=== PATIENT | female | born 1960 | race Caucasian/White ===

== ENCOUNTER 2017-09-07 09:24 | Emergency (ER) | payer MEDICARE ==
[2017-09-07] MEDS ORDERED: Ibuprofen 800 MG TAB ONE (11:50)
== END 2017-09-07 12:57 | disposition home or self-care (01) ==
LOC: ERS 09:24
DX: M54.6 Pain in thoracic spine (principal); Z79.899 Other long term (current) drug therapy
CPT/HCPCS: 93005

== ENCOUNTER 2017-09-10 12:04 | Observation (INO) | payer MEDICARE ==
[2017-09-10 12:38] LABS: #Eosinphils 0.2 thou/uL (0.0-0.7); #Lymphocytes 2.4 thou/uL (1.20-3.40); #Monocytes 0.6 thou/uL (0.11-0.59); #Neutrophils 4.5 thou/uL (1.40-6.50); %Basophils 0.5 % (0.0-1.0); %Eosinophils 2.4 % (0.0-10.0); %Lymphocytes 31.4 % (21.0-51.0); %Monocytes 7.8 % (0.0-10.0); %Neutrophils 57.9 % (42.0-75.0); Hemoglobin 14.6 g/dL (12.0-16.0); Mean Corpuscular Volume 91.3 fl (81.0-99.0); Mean Platelet Volume 8.1 fL (7.4-10.4); Platelet Count 204 thou/uL (130-400); RBC Distribution Width 12.1 % (11.5-14.5); White Blood Cell (WBC) Count 7.7 thou/uL (4.8-10.8)
[2017-09-10 12:59] LABS: ALT (SGPT) 66 U/L (8-55); AST (SGOT) 59 U/L (5-34); Albumin 4.1 g/dL (3.5-5.0); Alkaline Phosphatase 79 U/L (40-150); Anion Gap 12 mmol/L (10-20); BUN (Urea Nitrogen) 17 mg/dL (9.8-20.1); Bilirubin, Total 0.8 mg/dL (0.2-1.2); CK (CPK) 95 U/L (29-168); Calc. Creatinine Clearance 0 mL/min (70-130); Calcium 9.5 mg/dL (7.8-10.44); Carbon Dioxide 25 mmol/L (22-29); Chloride 105 mmol/L (98-107); Estimated GFR-MDRD 82; Globulin 3.1 g/dL (2.4-3.5); Glucose 92 mg/dL (70-105); Potassium 3.9 mmol/L (3.5-5.1); Protein, Total 7.2 g/dL (6.0-8.3); Sodium 138 mmol/L (136-145)
[2017-09-10] MEDS ORDERED: ISOVUE-370 76%-LOCM 1 ML ONE (13:01)
[2017-09-10 13:02] LABS: CKMB 3.6 ng/mL (0-6.6); Troponin I Less than 0.010 ng/mL (< 0.028)
--- NOTE | 2017-09-10 13:19 | RAD ---
AP CHEST: Indication: Chest pain. Comparison: None. FINDINGS: No airspace consolidation, pleural effusion is evident. Heart size is within normal limits. There are mild vascular calcifications involving the aortic arch. There is an ACDF plate involving the lower c ervical spine. No acute osseous abnormality is evident. IMPRESSION: No acute cardiopulmonary abnormality. POS: [facility]
[2017-09-10] MEDS ORDERED: Morphine 4 MG/ML VIAL ONE (15:11)
[2017-09-10 15:38] LABS: Troponin I Less than 0.010 ng/mL (< 0.028)
--- NOTE | 2017-09-10 16:14 | ULT ---
RIGHT UPPER QUADRANT ULTRASOUND: Date: 09/10/17 HISTORY: Right upper quadrant abdominal pain. FINDINGS: The gallbladder is mildly distended with increased echogenic material within the dependent portion of the gallbladder lumen suggesting small amount of sludge. No gallbladder calculus is seen. There is n o gallbladder wall thickening or pericholecystic fluid identified. Liver is at the upper limits of normal in size, but otherwise demonstrates a normal sonographic appea josiane. The limited visualized portions of the pancreas, visualized portions of the IVC, and right kid arron demonstrate a normal sonographic appearance. The right kidney measures 9.6 cm in length. There is a punctate echogenic focus in the inferior pole left kidney measuring 0.4 cm. No definitive posterio r shadowing is seen to suggest this represents a nonobstructing calculus, and this may represent a pr ominent vessel. IMPRESSION: Sludge within the gallbladder lumen. No gallbladder calculus is present. The common duct is normal in caliber measuring 0.5 cm in diameter. POS: [facility]
--- NOTE | 2017-09-10 18:00 | PDOC.FPRHP ---
Addendum entered and electronically signed by Carmencita Nassar DO 09/10/17 21 :43: Code status: Full DVT ppx: SCDs GI ppx: Protonix Original Note: - History of Present Illness Chief Complaint: Epigastric pain History of Present Illness: 57 year old female with PMH of HTN that presents with epigastric and substernal chest pain that woke her up from sleep. Patient states the pain is worse when laying flat. She denies any associated shortness of breath, diaphoresis, or radiation of pain. Patient has never experienced the substernal pain previously. She describes it as a sharp pain currently rated as a 7/10. She does have a history of PUD with bleeding ulcer three years ago which required cauterization and blood transfusion. She has not been on PPI's or antacids. She has not had any issues with ulcers since that time. Patient states that she has been taking her BP medications regularly. Associated symptoms include nausea without vomiting. Patient just moved from [place] and had not yet established with PCP. ED Course: Famotidine 20 mg, GI cocktail white 40 mL, Morphine 4 mg - Allergies/Adverse Reactions Allergies Allergy/AdvReac Type Severity Reaction Status Date / Time ketorolac [From Toradol] Allergy Unknown Rash Verified 09/10/17 21:17 - Home Medications Medication Instructions Recorded Confirmed Type Hydrochlorothiazide 12.5 mg PO DAILY 09/10/17 09/10/17 History Lisinopril 20 mg PO DAILY 09/10/17 09/10/17 History - History PMHx: HTN, Chronic BP, Cervical Cancer s/p hysterectomy, Hx of PUD PSHx: Spinal surgery x3, Appendectomy, Total hysterectomy FHx: Mother with DM and HTN. Dad with stent placed in mid 50's and Alzheimer's disease Social: Denies any tobacco, alcohol or drug use. - Review of Systems General: denies: fever/chills, weight/appetite/sleep changes, night sweats, fatigue Eyes: denies: eye pain, vision changes ENT: denies: nasal congestion, rhinorrhea Respiratory: denies: cough, congestion, shortness of breath, exercise intolerance Cardiovascular: reports: chest pain. denies: palpitation, edema, paroxysmal nocturnal dyspnea, orthopnea Gastrointestinal: reports: nausea, constipation, abdominal pain (Epigatric). denies: vomiting, diarrhea, GI bleeding Genitourinary: denies: incontinence, dysuria, polyuria Skin: denies: rashes, lesions, jaundice, itching Musculoskeletal: reports: pain (back pain), stiffness. denies: tenderness Neurological: denies: numbness, syncope, seizure, weakness Psychological: denies: anxiety, depression - Vital signs BP: 180/120 HR: 100 RR: 20 Tmax: 98.5F Pox: 98% on RA Wt: 82.1 kg - Physical Exam Constitutional: NAD, awake, alert and oriented, well developed HEENT: normocephalic and atraumatic, PERRLA, EOMI, conjunctiva clear, no scleral icterus, grossly normal vision, TM's clear and intact, grossly normal hearing, normal nasal mucosa, MMM, oropharynx clear -HEENT: Upper dentures Neck: supple, trachea midline -Chest: Tender to palpation in mid-chest; reproducible pain Heart: RRR, normal S1/S2, no murmurs/rubs/gallops, pulses present, no edema Lungs: CTAB, no respiratory distress, good air movement, no rales/rhonchi, no wheezing Abdomen: soft, bowel sounds present -Abdomen: Tender to palpation in epigastric region and RUQ. Negative Cain's sign. No rebound or guarding. Musculoskeletal: normal structure, ROM grossly normal Neurological: no focal deficit, CN II-XII intact Skin: no rash/lesions, good turgor, capillary refill <2 seconds Heme/Lymphatic: no unusual bruising or bleeding, no purpura, no petechia Psychiatric: normal mood and affect, good judgment and insight, intact recent and remote memory FMR H&P: Results - Labs Result Diagrams: 09/10/17 12:20 09/10/17 12:20 Lab results: WBC 7.7 thou/uL (4.8-10.8) 09/10/17 12:20 Hgb 14.6 g/dL (12.0-16.0) 09/10/17 12:20 Hct 42.9 % (36.0-47.0) 09/10/17 12:20 MCV 91.3 fl (81.0-99.0) 09/10/17 12:20 Plt Count 204 thou/uL (130-400) 09/10/17 12:20 Neutrophils % 57.9 % (42.0-75.0) 09/10/17 12:20 Sodium 138 mmol/L (136-145) 09/10/17 12:20 Potassium 3.9 mmol/L (3.5-5.1) 09/10/17 12:20 Chloride 105 mmol/L (98-107) 09/10/17 12:20 Carbon Dioxide 25 mmol/L (22-29) 09/10/17 12:20 BUN 17 mg/dL (9.8-20.1) 09/10/17 12:20 Creatinine 0.73 mg/dL (0.6-1.1) 09/10/17 12:20 Glucose 92 mg/dL (70-105) 09/10/17 12:20 Calcium 9.5 mg/dL (7.8-10.44) 09/10/17 12:20 Total Bilirubin 0.8 mg/dL (0.2-1.2) 09/10/17 12:20 AST 59 U/L (5-34) H 09/10/17 12:20 ALT 66 U/L (8-55) H 09/10/17 12:20 Alkaline Phosphatase 79 U/L (40-150) 09/10/17 12:20 Creatine Kinase 95 U/L (29-168) 09/10/17 12:20 CK-MB (CK-2) 3.6 ng/mL (0-6.6) 09/10/17 12:20 Serum Total Protein 7.2 g/dL (6.0-8.3) 09/10/17 12:20 Albumin 4.1 g/dL (3.5-5.0) 09/10/17 12:20 - Radiology Interpretation Chest x-ray Status: image reviewed by me, report reviewed by me Additional comment: No acute cardiopulmonary abnormality US - abdomen Status: image reviewed by me, report reviewed by me Additional comment: RUQ U/S: sludge within gallbladder lumen, normal common bile duct, no stones seen CT scan - abdomen Status: image reviewed by me, report reviewed by me Additional comment: Mild distention of gallbladder without inflammation, mildly enlarge spleen, reactive lymph nodes FMR H&P: A/P - Problem List (1) Atypical chest pain Current Visit: Yes Status: Acute Code(s): R07.89 - OTHER CHEST PAIN (2) Elevated LFTs Current Visit: Yes Status: Acute Code(s): R79.89 - OTHER SPECIFIED ABNORMAL FINDINGS OF BLOOD CHEMISTRY (3) PUD (peptic ulcer disease) Current Visit: Yes Status: Chronic Code(s): K27.9 - PEPTIC ULC, SITE UNSP, UNSP AC OR CHR, W/O HEMOR OR PERF (4) HTN (hypertension) Current Visit: Yes Status: Chronic Code(s): I10 - ESSENTIAL (PRIMARY) HYPERTENSION Qualifiers: Hypertension type: essential hypertension Qualified Code(s): I10 - Essential (primary) hypertension - Plan Atypical chest pain - New onset substernal chest pain reproducible on exam, as well as, epigastric pain in pt with history of PUD - Likely gastrointestinal in nature possibly from PUD vs. GERD - CE's neg x2, continue to trend x3 - EKG NSR without evidence of ischemia - GI cocktail given; will reevaluate pain after GI cocktail - Lipase 14; unlikely to be pancreatitis - RUQ ultrasound did show some sludge and CT abdomen showed mildly distended gallbladder without pericholecystic inflammation - Consider repeating CMP in AM - Patient would benefit from establishing with PCP to have further GI workup done as outpatient - Heart score of 2. No indication for stress test at this time. - Start on protonix and sucralfate TR Elevated LFT's - RUQ showed sludge in gallbladder - CT scan showed mildly distended gallbladder without inflammation - May need further workup as outpatient Hx PUD - No evidence of bleed on CT abdomen/pelvis - Patient has not been on PPI or antacids - Required cauterization of bleeding ulcer and blood transfusion 3 years ago; no other problems since that time HTN - Continue lisinopril and HCTZ - Pt may need adjustments in medication as outpatient - Continue to monitor BP - PRN BP medications as needed for SBP > 160 mmHg Dispo: Observe on telemetry. Anticipate LOS <48 hours. FMR H&P: Upper Level - Pertinent history 57 yo F with PMHx HTN and bleeding ulcers presented to ED for epigastric and substernal pain. Pt woke from sleep at 3am with epigastric pain radiating to back, nausea, and substernal chest pressure. Denies vomiting. Normal BM yesterday. Denies SOB, fever, cough, diaphoresis. Gets stomach cramps when lays down. Chest tender to touch. Did not try anything for relief. Pt had bleeding ulcers in unspecified location 3 years ago that caused hypotension and required blood products. Has not had recent issues. Pt moved from [place] recently and has not established with a PCP in the area. Observation overnight with 1-2 day stay expected. - Pertinent findings Gen: NAD, alert, well nourished HEENT: MMM CV: RRR, no m/r/g, chest wall mildly TTP with reproducible pain Lungs: CTAB, no increased WOB Abd: moderately TTP in epigastric region, ND, BS+, mild referred discomfort palpating RMQ, LMQ; neg Argos Ext: no edema - Plan Date/Time: 09/10/17 1800 1. Epigastric pain likely PUD. RUQ U/S showed gallbladder sludge. CT abd/pelvis showed no acute findings. Mildly distended gallbladder although did not appear inflamed or distended. Lipase 14. No white count. Pain appears most likely peptic ulcer dz in light of history and past issues. May have GERD component. GI cocktail ordered in ED and given during our exam. Will await if this was effective for symptoms. H2 andrea given. Treat pain overnight during observation period. 2. Atypical chest pain. Trend trops for chest pain component although less likely cardiac. Neg x2 currently. Heart score 2. Pain reproducible on exam. Likely GERD complaint. No plan for stress test. If recurs or worsens, consider repeat EKG. No ischemic signs on EKG per ED report although unable to find for personal evaluation. 3. HTN. Continue home meds. 4. Transaminitis. Very mild. Repeat CMP in AM. Normal bilirubin. Mild distended gallbladder with sludge may be culprit. I, Eduard Ahumada, have evaluated this patient and agree with findings/plan as outlined by agribusiness internship resident. Pertinent changes/additions are listed here. Attending Addendum - Attending Addendum Date/Time: 09/11/17 9179 I personally evaluated the patient and discussed the management with Dr. Nassar on 09/10/2017 I agree with the History, Examination, Assessment and Plan documented above with any addition or exceptions noted below- Briefly this is a 57 year old female with PMH of HTN, PUD who presented c/o epigastric and substernal chest pain. States that pain associated with nausea, no vomiting. Worse with eating or lying flat. Denies any diaphoresis. Pain did radiate to under shoulder blade. Never had similar pain. PMH/PSH/Meds/All/Sh/ROS reviewed and agree with resident's documentation. T 98.1 P85 BP 137/92 RR18 Pt seen and exam repeated by me. Agree with resident's findings. Labs Hgb=14.6 Hct= 42.9, lipase = 14 Troponin I (-) x3; ASt=59 ALT= 66 CXR- negative Abd USG- sludge in gallbladder. A/P: 1) Atypical chest pain- suspect GI source; Heart score=2. Continue PPI. Consider HIDA scan if pain persists. 2) Elevated transaminases- consider hepatitis panel. 3) H/o PUD- continue sucralfate and PPI
[2017-09-10] MEDS ORDERED: Famotidine 20 MG TAB ONE (18:14)
[2017-09-10] MEDS ORDERED: Lidocaine Viscous Sol 2% 15 ml UD Cup ONE (18:14)
[2017-09-10] MEDS ORDERED: Mag-Al 1200 mg/1200 mg/30 ML UDCUP ONE (18:14)
--- NOTE | 2017-09-10 18:29 | CT ---
CT ABDOMEN AND PELVIS WITH CONTRAST: HISTORY: Epigastric pain. COMPARISON: Ultrasound from the same day. FINDINGS: The lung bases are clear. No pericardial effusion. The gallbladder is moderately distended. The spleen is enlarged, measuring over 14 cm in size. The celiac trunk and superior mesenteric arteries are both patent. No free fluid or gas in the abdomen or pelvis. No dilated loops of large or small bowel. There is retained lobulation of the left kidney. No hydronephrosis. The pancreas is unremarkable. No mesenteric edema. Some fatty atrophy of the rectus abdominis muscl es bilaterally. The liver is unremarkable. The portal vein is patent. The adrenal glands are unremarkable. No renal calculi are present. Posterior spinal fusion hardware, L3-S1. IMPRESSION: 1. No acute inflammatory process in the abdomen or pelvis. 2. Small left gastric, celiac, and periaortic retroperitoneal lymph nodes may be reactive. 3. No dilated loops of large or small bowel. 4. Mild splenomegaly. 5. Mild distention of the gallbladder without pericholecystic inflammation. POS: [facility]
[2017-09-10 19:18] LABS: Troponin I Less than 0.010 ng/mL (< 0.028)
[2017-09-10] MEDS ORDERED: Ondansetron ODT 4 MG TAB SL PRN (20:37)
[2017-09-10] MEDS ORDERED: Ondansetron HCl/PF 4 MG/2 ML Vial IVP PRN (20:37)
[2017-09-10] MEDS ORDERED: Acetaminophen 325 MG TAB PO PRN (20:37)
[2017-09-10 21:12] VITALS: BMI 29.8
[2017-09-10] MEDS ORDERED: Calcium Carbonate 500 MG ChewTAB PO PRN (21:12)
[2017-09-10] MEDS ORDERED: Ondansetron ODT 4 MG TAB PO PRN (21:12)
[2017-09-10] MEDS ORDERED: Famotidine 20 MG TAB PO SCH (21:30)
[2017-09-10 21:45] LABS: Troponin I Less than 0.010 ng/mL (< 0.028)
[2017-09-10] MEDS: Acetaminophen 325 MG TAB PO PRN (21:46)
[2017-09-10] MEDS ORDERED: Metoclopramide HCl 10 MG/2 ML VIAL IVP SCH (23:45)
[2017-09-11 05:37] LABS: ALT (SGPT) 63 U/L (8-55); AST (SGOT) 54 U/L (5-34); Albumin 3.8 g/dL (3.5-5.0); Alkaline Phosphatase 70 U/L (40-150); Anion Gap 12 mmol/L (10-20); BUN (Urea Nitrogen) 21 mg/dL (9.8-20.1); Bilirubin, Total 0.9 mg/dL (0.2-1.2); Calc. Creatinine Clearance 94 mL/min (70-130); Calcium 9.1 mg/dL (7.8-10.44); Carbon Dioxide 26 mmol/L (22-29); Chloride 103 mmol/L (98-107); Estimated GFR-MDRD 70; Globulin 2.9 g/dL (2.4-3.5); Glucose 92 mg/dL (70-105); Potassium 3.8 mmol/L (3.5-5.1); Protein, Total 6.7 g/dL (6.0-8.3); Sodium 137 mmol/L (136-145)
[2017-09-11] MEDS: Acetaminophen 325 MG TAB PO PRN ×3 (07:51→20:24)
--- NOTE | 2017-09-11 08:55 | PDOC.FM ---
- Subjective Subjective: Patient still complains of epigastric pain this AM. States none on the medications she received last night helped with the pain, but she was so tired she finally was able to sleep through it. Worse when laying flat. Pain is in mid epigastric region and worse in RUQ than LUQ. Reports NSAID use of about 400 mg daily for 4 months. Worse with food. Apparently has had the pain for about 2 days but has been worse in the middle of the night for 2 nights prior to reporting to ER. Pain is sharp in nature. Afebrile. She does have a hx of alcohol use but denies any use in 1.5 years. She just returned to her own home after staying with [facility] [place] for a while bc there was concern for relapse. No hx of ND in mother, father, or grandparents. Denies hx of smoking. Denies hx of HLD. She does report hx of PUD with significant UGIB 3 years ago. Denies alcohol use leading up to the ulcer. - Objective MAR Reviewed: Yes Vital Signs & Weight: Vital Signs (12 hours) Temp Pulse Resp BP Pulse Ox 09/11/17 07:22 98.1 F 63 12 102/64 92 L 09/11/17 04:00 98.1 F 83 16 127/81 95 09/10/17 21:00 98.1 F 85 18 Weight Weight 81.374 kg I&O: 09/10/17 09/11/17 09/12/17 06:59 06:59 06:59 Intake Total 240 Balance 240 Result Diagrams: 09/10/17 12:20 09/11/17 04:39 Additional Labs: Laboratory Tests 09/10/17 09/10/17 09/10/17 12:20 12:20 15:05 Troponin I Less than 0.010 Less than 0.010 Lipase 14 09/10/17 09/10/17 18:47 21:11 Troponin I Less than 0.010 Less than 0.010 Lipase EKG Reviewed by me: Yes (NSR without ST changes or evidence of prior ischemia) <Nella Schulz - Last Filed: 09/11/17 10:26> - Objective Vital Signs & Weight: Vital Signs (12 hours) Temp Pulse Resp BP BP Pulse Ox 09/11/17 09:07 102/64 09/11/17 07:22 98.1 F 63 12 102/64 92 L 09/11/17 04:00 98.1 F 83 16 127/81 95 Weight Weight 81.374 kg I&O: 09/10/17 09/11/17 09/12/17 06:59 06:59 06:59 Intake Total 240 Balance 240 Result Diagrams: 09/10/17 12:20 09/11/17 04:39 <Renato Jernigan - Last Filed: 09/11/17 10:45> Phys Exam - Physical Examination Constitutional: NAD HEENT: moist MMs Respiratory: no wheezing, no rales, no rhonchi, clear to auscultation bilateral Cardiovascular: RRR, no significant murmur Gastrointestinal: soft mild tenderness to palpation in epigastric region, no guarding or rigidity Musculoskeletal: no edema Neurological: non-focal, normal sensation, moves all 4 limbs Psychiatric: A&O x 3 Skin: cap refill <2 seconds <Nella Schulz - Last Filed: 09/11/17 10:26> Dx/Plan (1) Epigastric abdominal pain of unknown etiology Code(s): R10.13 - EPIGASTRIC PAIN Status: Acute (2) Atypical chest pain Code(s): R07.89 - OTHER CHEST PAIN Status: Ruled-out (3) Elevated LFTs Code(s): R79.89 - OTHER SPECIFIED ABNORMAL FINDINGS OF BLOOD CHEMISTRY Status : Acute (4) HTN (hypertension) Code(s): I10 - ESSENTIAL (PRIMARY) HYPERTENSION Status: Chronic QualifierTitle: Hypertension type: essential hypertension Qualified Code( s): I10 - Essential (primary) hypertension (5) PUD (peptic ulcer disease) Code(s): K27.9 - PEPTIC ULC, SITE UNSP, UNSP AC OR CHR, W/O HEMOR OR PERF Status: Chronic - Plan Plan: 57 yr old female with hx of PUD and HTN presents for atypical CP vs epigastric pain epigastric pain -in light of hx of PUD, could be recurrent PUD. -RUQ sono revealing gallbladder sludge -may need EGD vs HIDA scan. -pending FOBT and stool h. pylori - consult GI atypical chest pain -neg trops x 4 -EKG without evidence for STEMI or ischemia - heart score 2, low risk. hx of PUD HTN -cont home meds. <Nella Schulz - Last Filed: 09/11/17 10:26> Attending Addendum - Attending Addendum Date/Time: 09/11/17 1041 I personally evaluated the patient and discussed the management with Dr. Schulz. I agree with the History, Examination, Assessment and Plan documented above with any addition or exceptions noted below. Negative cardiac workup. Her pain is mid epigastric and not improved with GI cocktail or Carafate. Due to her history of increased EtOH consumption, and chronic NSAID use, concern for gastritis versus recurrence of her PUD. WIll consult GI. <Renato Jernigan - Last Filed: 09/11/17 10:45>
[2017-09-11] MEDS ORDERED: Famotidine 20 MG TAB PO SCH (09:00)
[2017-09-11] MEDS: Hydrochlorothiazide 25 MG TAB PO SCH (09:07)
[2017-09-11] MEDS: Lisinopril 20 MG TAB PO SCH (09:07)
[2017-09-11] MEDS: Sucralfate 1 GM/10 ML UDCUP PO SCH ×2 (09:08→20:24)
[2017-09-11] MEDS ORDERED: Metoclopramide HCl 10 MG/2 ML VIAL IVP SCH (11:00)
[2017-09-12 07:18] LABS: ALT (SGPT) 67 U/L (8-55); AST (SGOT) 63 U/L (5-34); Albumin 3.7 g/dL (3.5-5.0); Alkaline Phosphatase 75 U/L (40-150); Anion Gap 13 mmol/L (10-20); BUN (Urea Nitrogen) 13 mg/dL (9.8-20.1); Bilirubin, Total 1.1 mg/dL (0.2-1.2); Calc. Creatinine Clearance 100 mL/min (70-130); Calcium 9.6 mg/dL (7.8-10.44); Carbon Dioxide 25 mmol/L (22-29); Chloride 104 mmol/L (98-107); Estimated GFR-MDRD 76; Globulin 3.2 g/dL (2.4-3.5); Glucose 89 mg/dL (70-105); Potassium 4.1 mmol/L (3.5-5.1); Protein, Total 6.9 g/dL (6.0-8.3); Sodium 138 mmol/L (136-145)
[2017-09-12] MEDS: Lisinopril 20 MG TAB PO SCH (08:07)
[2017-09-12] MEDS: Hydrochlorothiazide 25 MG TAB PO SCH (08:08)
[2017-09-12] MEDS: Sucralfate 1 GM/10 ML UDCUP PO SCH (08:08)
[2017-09-12] MEDS: Acetaminophen 325 MG TAB PO PRN ×2 (08:13→13:44)
[2017-09-12 08:14] VITALS: BP 122/69
[2017-09-12 08:22] VITALS: TEMP 98.3
--- NOTE | 2017-09-12 08:50 | PDOC.FM ---
- Subjective Subjective: Patient states pain is still present in mid epigastric region. She has been NPO however and is scheduled for EGD today. No other complaints. Denies N/V/D. Has not had BM in 2 days. Normally goes daily. No melena recently. - Objective MAR Reviewed: Yes Vital Signs & Weight: Vital Signs (12 hours) Temp Pulse Resp BP BP Pulse Ox 09/12/17 08:07 122/69 09/12/17 08:02 98.3 F 67 16 122/69 92 L 09/12/17 05:00 98.1 F 66 18 112/58 L 94 L Weight Weight 81.329 kg I&O: 09/11/17 09/12/17 09/13/17 06:59 06:59 06:59 Intake Total 240 1450 Balance 240 1450 Result Diagrams: 09/10/17 12:20 09/12/17 06:42 <Nella Schulz - Last Filed: 09/12/17 08:47> - Objective Vital Signs & Weight: Vital Signs (12 hours) Temp Pulse Resp BP BP Pulse Ox 09/12/17 08:07 122/69 09/12/17 08:02 98.3 F 67 16 122/69 92 L 09/12/17 05:00 98.1 F 66 18 112/58 L 94 L Weight Weight 81.329 kg I&O: 09/11/17 09/12/17 09/13/17 06:59 06:59 06:59 Intake Total 240 1450 Balance 240 1450 Result Diagrams: 09/10/17 12:20 09/12/17 06:42 <Adonay Conklin - Last Filed: 09/12/17 11:17> Phys Exam - Physical Examination Constitutional: NAD Respiratory: no wheezing, no rales, no rhonchi Cardiovascular: RRR, no significant murmur Gastrointestinal: soft tender in mid epigatric region-some guarding with palpation. no regidity Musculoskeletal: no edema Neurological: moves all 4 limbs <Nella Schulz - Last Filed: 09/12/17 08:47> Dx/Plan (1) Epigastric abdominal pain of unknown etiology Code(s): R10.13 - EPIGASTRIC PAIN Status: Acute (2) Atypical chest pain Code(s): R07.89 - OTHER CHEST PAIN Status: Ruled-out (3) Elevated LFTs Code(s): R79.89 - OTHER SPECIFIED ABNORMAL FINDINGS OF BLOOD CHEMISTRY Status : Acute (4) HTN (hypertension) Code(s): I10 - ESSENTIAL (PRIMARY) HYPERTENSION Status: Chronic QualifierTitle: Hypertension type: essential hypertension Qualified Code( s): I10 - Essential (primary) hypertension (5) PUD (peptic ulcer disease) Code(s): K27.9 - PEPTIC ULC, SITE UNSP, UNSP AC OR CHR, W/O HEMOR OR PERF Status: Chronic - Plan Plan: 57 yr old female with hx of PUD and HTN presents for atypical CP vs epigastric pain epigastric pain -in light of hx of PUD, could be recurrent PUD. -RUQ sono revealing gallbladder sludge- CT aslo reviewed with radiology, no gallbladder wall thickening, low concern for cholecystitis -GI to perform EGD today. -pending FOBT and stool h. pylori atypical chest pain -neg trops x 4 -EKG without evidence for STEMI or ischemia - heart score 2, low risk. - do not suspect ACS hx of PUD HTN -cont home meds. <Nella Schulz - Last Filed: 09/12/17 08:47> Attending Addendum - Attending Addendum Date/Time: 09/12/17 1110 I personally evaluated the patient and discussed the management with Dr. Schulz. I agree with the History, Examination, Assessment and Plan documented above with any addition or exceptions noted below. pain appears to be GI related. ND r/o'd. GB sludge, For EGD this am. consider OP f/u for biliary colic if persists. <Adonay Conklin - Last Filed: 09/12/17 11:17>
[2017-09-12] MEDS ORDERED: Sodium Chloride 0.9% 10 ML ONE (09:45)
[2017-09-12] MEDS ORDERED: Promethazine HCl 25 MG/ML VIAL IM PRN (10:50)
[2017-09-12] MEDS ORDERED: Promethazine HCl 25 MG/ML VIAL SLOW IVP PRN (10:50)
[2017-09-12] MEDS ORDERED: Ondansetron HCl/PF 4 MG/2 ML Vial IVP PRN (10:50)
[2017-09-12] MEDS ORDERED: Fentanyl 100 MCG/2 ML VIAL ONE ×2 (10:53→11:10)
[2017-09-12] MEDS ORDERED: PROPOFOL 200 MG/20 ML VIAL ONE (15:08)
[2017-09-12] MEDS ORDERED: Lidocaine 1% PF 5 ML VIAL ONE (15:08)
--- NOTE | 2017-09-12 23:46 | OP ---
DATE OF PROCEDURE: 09/12/2017 OPERATIVE PROCEDURE: Esophagogastroduodenoscopy with biopsy. PREOPERATIVE DIAGNOSES: Abdominal pain, past history of bleeding peptic ulcer 3 years ago. POSTOPERATIVE DIAGNOSES: 1. Mild esophagitis, grade 2. No ulcer seen. 2. Three gastric ulcers in gastric antrum. 3. Normal duodenum. PROCEDURE NOTE: The patient was placed on her left lateral position and was given sedation by Anesth esia Department. A Pentax video gastroscope under direct vision passed down the oropharynx past the GE junction into the stomach and subsequently to descending duodenum. The upper two-thirds of the es ophageal mucosa appeared normal. Over the distal esophagus, the patient was found to have hyperemia and edema. The GE junction, no pathology seen. The fundus, cardia, and gastric body, no pathology s een. In the gastric antrum, the patient was found to have a large ulceration, which appears chronic. The ulcer is probably about 1.5 cm x 1.75 cm. There were two more ulcers seen in the same area. A biopsy of the ulcer margin, ulcer base. The scope was advanced into the duodenal bulb and with desc ending duodenum. No pathology seen. The stomach was decompressed and scope removed. RECOMMENDATIONS: 1. Diet as tolerated. 2. Pantoprazole 40 once a day. 3. She will come back to clinic in 2 weeks.
--- NOTE | 2017-09-13 07:45 | CON ---
DATE OF CONSULTATION: 09/11/2017 REFERRING PHYSICIAN: Jade Wells MD REASON FOR CONSULTATION: Abdominal pain and nausea. HISTORY OF PRESENT ILLNESS: Ms. Alexus Herron is a very pleasant 57-year-old female hospit alized with abdominal pain and nausea. The patient tells me she has been having abdominal pain, mild to begin with for nearly 3-4 days. The pain got worse last night and she had severe nausea. She carrasco d no vomiting. She had no fever or chills. The pain is actually over the substernal area and also i n epigastric area. It is actually more widespread than actually localized. She points to the epigas tric area, right upper quadrant, and periumbilically as the site of pain. She was having also some s ubsternal pain to begin with, but the substernal pain has resolved. Now, she has persistent pain ove r the epigastric and periumbilical area. Her nausea has actually resolved. She is actually feeling better today except for the pain. The patient has history of bleeding peptic ulcer disease years ago . At that time, she was living in [place]. She was taking aspirin and she had an episode of dizzine ss, feeling faint and she went to the ER. On the way, she had an episode of vomiting and . She was hospitalized at [facility] and had an EGD done. She was told to have bleeding pe ptic ulcer. She was placed on PPI. She was advised not to take aspirin or any NSAID medication subs equently. The patient has not taken any aspirin or any NSAID medication for a long time. The patien t's bowel movements are fairly regular. There is no history of hematochezia or melena. She had told me she had a colonoscopy at the same time that she had bleeding peptic ulcer 3 years ago. She tells me that she had 28 polyps removed, but she did not go back for followup colonoscopy. The patient carrasco s no history of dysphagia. No history of odynophagia. She has no other relevant history. ALLERGIES: KETOROLAC. SOCIAL HISTORY: The patient does not smoke or drink alcohol. She has 1 grown up daughter. She live s in [place]. Her son at the age of 28 and he was a compensator worker, and he during some house on fire. MEDICAL ILLNESSES: 1. Hypertension. 2. Cervical cancer, status post hysterectomy. 3. History of bleeding peptic ulcer, 3 years ago. 4. Colon polyps, 2015. SURGERIES: 1. Spine surgery x3. 2. Appendectomy. 3. Total hysterectomy. FAMILY HISTORY: Father had diabetes, hypertension, coronary artery disease and Alzheimer's disease. MEDICATIONS: Hydrochlorothiazide and lisinopril. REVIEW OF SYSTEMS: A 10-point system reviewed. Constitutional: No history of fever. No weight los s. No night sweats. Exercise tolerance is very good. Head: No headache, no dizziness, no syncope, no seizure disorder. Eyes: Good vision. No blurring of vision, no diplopia. Ears: No ear pain o r any hearing impairment. Nose: No nosebleed. Neck: No pain or limitation of movement. Respirato ry: No history of chronic cough, hemoptysis, dyspnea. Cardiovascular: No chest pain, no palpitatio n. No dyspnea, orthopnea, PND. Gastrointestinal: As in history of present illness. Genitourinary: No dysuria, frequency of urination, hematuria. Musculoskeletal: Unremarkable. Endocrine: Unrema rkable. Neuropsychiatry: Unremarkable. PHYSICAL EXAMINATION: GENERAL: Very pleasant female, who appears very comfortable. She is awake; alert; oriente d to time, place, and person. VITAL SIGNS: She is afebrile. Pulse is 72, blood pressure 120/72. HEENT: Conjunctivae clear. NECK: Supple. No adenitis or thyromegaly. CARDIOVASCULAR: First and second heart sounds normal. LUNGS: Clear to auscultation. ABDOMEN: Soft. Abdomen is nondistended, but tender over the epigastric area, periumbilical area, an d also right upper quadrant. There is no rebound or guarding. No organomegaly or masses. Bowel rashawn nds are normal. EXTREMITIES: Reveal no edema. LABORATORY DATA: CBC, completely normal. Hemoglobin 14.6, hematocrit 42.9, WBC 7700, polymorphs 57, lymphocytes 81. Chem panel, normal. BMP: BUN is 21, glucose is 92, calcium 9.1, bilirubin 0.9. A ST elevated at 54, ALT is 53, alkaline phosphatase is 70, albumin is 3.8. Abdominal sonogram showed bilious sludge, otherwise unremarkable. CAT scan is basically negative. CLINICAL IMPRESSION: A 57-year-old female with, 1. Abdominal pain and nausea. The symptoms are worse over the last 24 hours. She has history of bl eeding peptic ulcer many years ago. CT scan, abdominal sonogram are basically negative. Her serum l ipase is normal. Plan EGD tomorrow. 2. Abnormal liver function tests, etiology unclear. I recommend obtaining hepatitis C antibody and viral markers.
--- NOTE | 2017-09-13 13:59 | DIS-2 ---
DATE OF ADMISSION: 09/10/2017 DATE OF DISCHARGE: 09/12/2017 ADMITTING ATTENDING: Jade Wells MD DISCHARGE ATTENDING: Adonay Conklin MD RESIDENT: Nella Schulz MD CONSULTATION: Dr. Pittman of GI. PRIMARY DIAGNOSES: 1. Peptic ulcer disease. 2. Atypical chest pain - acute coronary syndrome rule out. 3. History of peptic ulcer disease. 4. Hypertension. 5. Elevated in liver enzymes. PERTINENT IMAGING FINDINGS: 1. There was a chest x-ray performed on 09/10/2017 that showed no acute cardiopulmonary abnormality. 2. Abdominal ultrasound was performed on 09/10/2017 that showed sludge within the gallbladder lumen. No gallbladder calculus present. The common bile duct is normal in caliber, measuring 0.5 cm in di ameter. Liver was upper limits of normal in size, but otherwise demonstrates normal sonographic appe arance. 3. Abdominal CT on 09/10/2017, showed no acute inflammatory process in the abdomen or pelvis. There is small left gastric celiac and periaortic retroperitoneal lymph nodes that may be reactive. There are no dilated loops of large or small bowel and there is mild splenomegaly. Liver was reported as unremarkable. 4. There was an EGD performed on 09/12/2017 that showed mild esophagitis grade 2 with no ulcers seen . There are 3 gastric ulcers in the gastric antrum and a normal duodenum. There was a biopsy taken that did not show H. pylori, but did show reactive gastropathy. HISTORY OF PRESENT ILLNESS AND HOSPITAL COURSE: This is a 57-year-old female with a history of bleed ing peptic ulcer disease as well as hypertension, who presented to the ER with complaints of epigastr ic abdominal pain. The patient was taken for an EGD which was diagnostic of gastric ulcers. The pat ient was sent home on Protonix to take once daily. The patient did have some mildly elevated liver e nzymes and she was recommended to follow up and establish care with a PCP to have this further worked up. Patient did not demonstrate any hematemesis and her hemoglobin was within normal limits. Again , the patient was recommended to follow up with Dr. Pittman who performed EGD in 2 weeks. She was recommended to establish care at [facility] within a week of discharge. The patient was st able at discharge. The patient was explicitly told to avoid NSAIDs and avoid spicy foods and coffee, She is in the recuperating phase of her ulcers. DISPOSITION: Stable. DISCHARGE INSTRUCTIONS: 1. Location: Home. 2. Activity: As tolerated. 3. Diet: Regular but avoid spicy food. 4. Followup: Follow up with Dr. Pittman and [facility] within 1-2 weeks of discharge.
== END 2017-09-12 15:49 | disposition home or self-care (01) ==
LOC: ERS 12:04 → 2SW 18:06
PROVIDERS: ADMIT Family Medicine; ATTEND Family Medicine
PROC: 0DB68ZX Excision of Stomach, Via Natural or Artificial Opening Endoscopic, Diagnostic (ICD-10-PCS; principal; 2017-09-12)
DX: K25.9 Gastric ulcer, unspecified as acute or chronic, without hemorrhage or perforation (principal); K20.9 Esophagitis, unspecified; I10 Essential (primary) hypertension; R79.89 Other specified abnormal findings of blood chemistry; R07.89 Other chest pain; Z88.8 Allergy status to other drugs, medicaments and biological substances; Z85.41 Personal history of malignant neoplasm of cervix uteri; Z90.89 Acquired absence of other organs; Z90.710 Acquired absence of both cervix and uterus; Z79.899 Other long term (current) drug therapy
CPT/HCPCS: 43239; 71045; 74177; 76705; 80053 ×3; 82550; 82553; 83690; 84484 ×2; 85025; 88305; 88312; 93005; 94760; 96374; 96375; 96376; 99285; G0378; 36415; J2001; J2270; J2704; J2765; J3010

== ENCOUNTER 2017-10-19 18:25 | Emergency (ER) | payer MEDICARE, SELFPAY ==
[2017-10-19 19:06] LABS: #Eosinphils 0.2 thou/uL (0.0-0.7); #Lymphocytes 1.8 thou/uL (1.20-3.40); #Monocytes 0.4 thou/uL (0.11-0.59); #Neutrophils 3.1 thou/uL (1.40-6.50); %Basophils 0.3 % (0.0-1.0); %Eosinophils 3.5 % (0.0-10.0); %Lymphocytes 32.9 % (21.0-51.0); %Monocytes 7.5 % (0.0-10.0); %Neutrophils 55.8 % (42.0-75.0); Hemoglobin 13.1 g/dL (12.0-16.0); Mean Corpuscular Hemoglobin 31.3 pg (27.0-31.0); Mean Corpuscular Volume 89.4 fL (78.0-98.0); Mean Platelet Volume 7.8 fL (7.4-10.4); Platelet Count 150 thou/uL (130-400); White Blood Cell (WBC) Count 5.6 thou/uL (4.8-10.8)
[2017-10-19 19:33] LABS: CKMB 3.6 ng/mL (0-6.6); Troponin I Less than 0.010 ng/mL (< 0.028)
--- NOTE | 2017-10-19 19:40 | RAD ---
RADIOGRAPH CHEST 1 VIEW: 10/19/17 HISTORY: 57-year-old female with pressure type of posterior chest pain. FINDINGS: The thoracic aorta is tortuous and ectatic. There is no evidence of air space density, pneumothorax, or pulmonary edema. The lateral costophrenic angles are sharp. There is no cardiomegaly. ACDF hardw are in the C-spine. IMPRESSION: 1) No acute pulmonary findings. 2) Ectasia of thoracic aorta. zina [] POS: GABRIELLA
[2017-10-19] MEDS ORDERED: Acetaminophen 500 MG TAB ONE (19:45)
[2017-10-19] MEDS ORDERED: Lidocaine Viscous Sol 2% 15 ml UD Cup ONE (19:55)
[2017-10-19] MEDS ORDERED: Mag-Al 1200 mg/1200 mg/30 ML UDCUP ONE (19:55)
[2017-10-19 20:12] LABS: Chloride 108 mmol/L (98-107); Sodium 140 mmol/L (136-145)
[2017-10-19 20:13] LABS: ALT (SGPT) 74 U/L (8-55); AST (SGOT) 61 U/L (5-34); Albumin 3.8 g/dL (3.5-5.0); Alkaline Phosphatase 74 U/L (40-150); Anion Gap 11 mmol/L (10-20); BUN (Urea Nitrogen) 20 mg/dL (9.8-20.1); Bilirubin, Total 0.5 mg/dL (0.2-1.2); CK (CPK) 86 U/L (29-168); Calc. Creatinine Clearance 0 mL/min (70-130); Calcium 9.2 mg/dL (7.8-10.44); Carbon Dioxide 25 mmol/L (22-29); Estimated GFR-MDRD 71; Globulin 2.6 g/dL (2.4-3.5); Glucose 138 mg/dL (70-105); Protein, Total 6.4 g/dL (6.0-8.3)
[2017-10-19 20:27] LABS: Lipase 16 U/L (8-78)
--- NOTE | 2017-10-19 21:03 | ULT ---
ULTRASOUND ABDOMEN LIMITED: (RIGHT UPPER QUADRANT) 10/19/17 HISTORY: 57-year-old female with right upper quadrant abdominal pain, nausea, and elevated LFTs. FINDINGS: Gallbladder: Conatracted. Patient's last meal was six hours ago. Apparent minimal mural thickening of 3 mm could be due to the contracted state. No definite gallstone identified. Positive tenderness ove r the gallbladder. No pericholecystic fluid identified. Common duct: 5 mm. Liver: Unremarkable. Pancreas: Poorly visualized, partially obscured by shadowing from bowel gas. Right kidney: No hydronephrosis. IMPRESSION: Limited study due to contracted gallbladder. No definite gallstone identified. NAYELI Del Rosario POS: GABRIELLA
== END 2017-10-19 21:10 | disposition home or self-care (01) ==
LOC: ERS 18:25
DX: K29.70 Gastritis, unspecified, without bleeding (principal); R07.2 Precordial pain; K21.9 Gastro-esophageal reflux disease without esophagitis; G89.29 Other chronic pain; M54.9 Dorsalgia, unspecified; F41.9 Anxiety disorder, unspecified; I10 Essential (primary) hypertension; Z79.899 Other long term (current) drug therapy
CPT/HCPCS: 36415; 71045; 76705; 80053; 82553; 83690; 83880; 84484; 85025; 85379; 93005; 96372